=== PATIENT | male | born 1960 | race Caucasian/White ===

== ENCOUNTER 2017-06-09 20:18 | Emergency (ER) ==
[~2017-06-09 20:18] MED LIST: BENADRYL IVP STA; DECADRON 4 MG/ML SDV IVP STA; PEPCID IVP STA; SODIUM CHLORIDE 1,000 ML IV STA
[2017-06-09] MEDS ORDERED: ADRENALIN 1:1000 SDV IM STA (20:19)
[2017-06-09] MEDS ORDERED: EPINEPHRINE 1:1,000 AMP ONE (20:29)
[2017-06-09] MEDS ORDERED: BENADRYL IVP STA (20:56)
--- NOTE | 2017-06-09 20:58 | ED.PDOC ---
General ED Provider: Dr. REZA BOYD-ER Chief Complaint: Allergic Reaction Stated Complaint: i was putting a dog collar and i started getting a red rash all over and its itchy and my throat is "a little tight" Time Seen by Physician: 20:45 Mode of Arrival: Walk-In Information Source: Patient, Family Exam Limitations: No limitations Nursing and Triage Documentation Reviewed and Agree: Yes Skin Complaint Exam - Skin Rash/Itching Complaint/Exam Onset/Duration: 1hr Symptoms Are: Still present Initial Severity: Mild Current Severity: Moderate Location: trunk and extremities Potential Exposures: Reports: Medicines Aggravating: Reports: None Alleviating: Reports: None Associated Signs and Symptoms: Denies: Difficulty breathing, Fever, Chills Skin Findings: Present: Urticaria Differential Diagnoses: Allergic Reaction Review of Systems - Review Of Systems Constitutional: Reports: No symptoms Eyes: Reports: No symptoms Ears, Nose, Mouth, Throat: Reports: Throat swelling Respiratory: Reports: No symptoms Cardiac: Reports: No symptoms GI: Reports: No symptoms : Reports: No symptoms Musculoskeletal: Reports: No symptoms Skin: Reports: Rash Neurological: Reports: No symptoms Endocrine: Reports: No symptoms Hematologic/Lymphatic: Reports: No symptoms All Other Systems: Reviewed and Negative Past Medical History - Past Medical History Previously Healthy: Yes Endocrine: Reports: Unknown, Other Cardiovascular: Reports: Hypertension Respiratory: Reports: Other Hematological: Reports: Unknown Gastrointestinal: Reports: Unknown Genitourinary: Reports: Unknown Neuro/Psych: Reports: Unknown Musculoskeletal: Reports: Unknown Cancer: Reports: Unknown - Surgical History General Surgical History: Reports: Unknown - Family History Family History: Reports: Unknown - Social History Smoking Status: Current every day smoker, Heavy tobacco smoker Hx Substance Use: No Alcohol Screening: Occasionally Lives: With family - Immunizations Tetanus Shot up to Date: No (unknown) Physical Exam - Physical Exam Appearance: Well-appearing Eyes: MELINDA, EOMI, Conjunctiva clear ENT: Ears normal, Nose normal, Oropharynx normal Neck: Supple Respiratory: Airway patent, Breath sounds clear, Breath sounds equal, Respirations nonlabored Cardiovascular: RRR, Pulses normal, No rub, No murmur GI/: Soft, Nontender, No masses, Bowel sounds normal, No Organomegaly Musculoskeletal: Normal strength, ROM intact, No edema, No calf tenderness Skin: Warm, Dry, Normal color (noted skin rash over extremities) Neurological: Sensation intact, Motor intact, Reflexes intact, Cranial nerves intact, Alert, Oriented Psychiatric: Affect appropriate, Mood appropriate Re-Evaluation - Re-Evaluation Time of Re-Evaluation: 21:44 Status: Improved Vital Signs Stable: Yes Pain Level: 0 Appearance: NAD Lungs: Clear Skin: Warm and Dry Neuro: Alert and Oriented X3 CV: RRR Additional Comments: no rash or itching Critical Care Note - Critical Care Note Total Time (mins): 0 Course - Course Orders, Labs, Meds: Orders Category Date Time Status Transport Medic [ED MACHINE MAINTENANCE REPAIRER APPLIED] .ONCE EMERGENCY 06/09/17 20:29 Active ED IV/MEDIPORT/POWERPORT .ONCE EMERGENCY 06/09/17 20:10 Active 0.9 % Sodium Chloride [Saline Flush] MEDS 06/09/17 20:10 Ordered 1 syr IVF PRN PRN Dexamethasone 4 mg/ml Inj [Decadron 4 mg/ml Sdv] MEDS 06/09/17 21:15 Discontinued 2 mg IVP ONCE STA Dexamethasone 4 mg/ml Inj [Decadron 4 mg/ml Sdv] MEDS 06/09/17 20:10 Discontinued 8 mg IVP ONCE STA Diphenhydramine Inj [Benadryl] MEDS 06/09/17 20:10 Discontinued 50 mg IVP ONCE STA Diphenhydramine Inj [Benadryl] MEDS 06/09/17 20:56 Discontinued 50 mg IVP ONCE STA Epinephrine Amp [Epinephrine 1:1,000 Amp] MEDS 06/09/17 20:29 Discontinued 1 mg .ROUTE .STK-MED ONE Epinephrine [Adrenalin 1:1000 Sdv] MEDS 06/09/17 20:19 Discontinued 0.2 mg IM ONCE STA Famotidine Inj [Pepcid] MEDS 06/09/17 20:11 Discontinued 40 mg IVP ONCE STA Sodium Chloride 0.9% [Sodium Chloride] 1,000 ml MEDS 06/09/17 20:10 Active IV 100 mls/hr Medications Generic Name Dose Route Start Last Admin Trade Name Freq PRN Reason Stop Dose Admin Sodium Chloride 1,000 mls @ 100 mls/hr 06/09/17 20:10 06/09/17 20:38 Sodium Chloride IV 06/10/17 06:09 100 mls/hr .Q10H STA Administration Sodium Chloride 1 syr 06/09/17 20:10 06/09/17 21:00 Saline Flush IVF 1 syr PRN PRN Administration To flush IV Discontinued Medications Generic Name Dose Route Start Last Admin Trade Name Shirlene PRN Reason Stop Dose Admin Dexamethasone Sodium Phosphate 8 mg 06/09/17 20:10 06/09/17 20:28 Decadron 4 Mg/Ml Sdv IVP 06/09/17 20:11 8 mg ONCE STA Administration Dexamethasone Sodium Phosphate 2 mg 06/09/17 21:15 06/09/17 21:17 Decadron 4 Mg/Ml Sdv IVP 06/09/17 21:16 2 mg ONCE STA Administration Diphenhydramine HCl 50 mg 06/09/17 20:10 06/09/17 20:27 Benadryl IVP 06/09/17 20:11 50 mg ONCE STA Administration Diphenhydramine HCl 50 mg 06/09/17 20:56 06/09/17 21:00 Benadryl IVP 06/09/17 20:57 50 mg ONCE STA Administration Epinephrine HCl 0.2 mg 06/09/17 20:19 06/09/17 20:25 Adrenalin 1:1000 Sdv IM 06/09/17 20:20 0.2 mg ONCE STA Administration Famotidine 40 mg 06/09/17 20:11 06/09/17 20:30 Pepcid IVP 06/09/17 20:12 40 mg ONCE STA Administration Vital Signs: Temp Pulse Resp BP Pulse Ox 06/09/17 20:41 99.1 F 109 H 20 137/96 H 94 L Departure - Departure Time of Disposition: 21:44 Disposition: HOME SELF-CARE Discharge Problem: Allergic state Instructions: General Allergic Reaction (ED), Urticaria (ED) Condition: Good Pt referred to PMD for follow-up: Yes Additional Instructions: medrol dose pack--continue benadryl q 6hrs --zantac 150mg bid #30--epi pen if symptoms should arise in the future--wasp stings etc. Allergies/Adverse Reactions: Allergies codeine Adverse Reaction (Verified 06/09/17 20:51) Home Medications: Ambulatory Orders Amlodipine Besylate 5 mg PO DAILY 06/09/17 Aspirin [Aspirin EC] 325 mg PO DAILYWM 06/09/17 Disposition Discussed With: Patient, Family
[2017-06-09 21:04] VITALS: BP 137/96; TEMP 99.1; BMI 26.6
[2017-06-09] MEDS ORDERED: DECADRON 4 MG/ML SDV IVP STA (21:15)
== END 2017-06-09 22:00 | disposition home or self-care (01) ==
LOC: ED 20:18
DX: L50.0 Allergic urticaria (principal); F17.210 Nicotine dependence, cigarettes, uncomplicated
CPT/HCPCS: 96361; 96372; 96374; 96375; 96376; 99283